=== PATIENT | male | born 1945 | race Caucasian/White ===

== ENCOUNTER 2022-02-01 17:29 | Emergency (ER) | payer MEDICARE, SELFPAY ==
--- NOTE | 2022-02-01 17:33 | CTR_ITS ---
PROCEDURE INFORMATION: Exam: CT Head Without Contrast Exam date and time: 02/01/2022 5:57 PM Age: 76 years old Clinical indication: Altered mental status/memory loss; Additional info: AMS TECHNIQUE: Imaging protocol: Computed tomography of the head without contrast. Radiation optimization: All CT scans at this facility use at least one of these dose optimization techniques: automated exposure control; mA and/or kV adjustment per patient size (includes targeted exams where dose is matched to clinical indication); or iterative reconstruction. COMPARISON: CT head wo con* [id number] 06/23/2018 3:12 PM RADIATION DOSE METRICS: Total DLP (mGy-cm): 1079.28 FINDINGS: Brain: No hemorrhage. No edema. Moderate diffuse cerebral atrophy and sequela of chronic small vessel ischemic disease. 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 No mass effect. Cerebral ventricles: No ventriculomegaly. Paranasal sinuses: Visualized sinuses are unremarkable. No fluid levels. Mastoid air cells: Visualized mastoid air cells are well aerated. Bones/joints: Unremarkable. No acute fracture. Soft tissues: Unremarkable. CT/CT head wo con* [id number] IMPRESSION: 1. No acute intracranial abnormality. 2. Moderate diffuse cerebral atrophy and sequela of chronic small vessel ischemic disease. 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
--- NOTE | 2022-02-01 17:33 | ECG_ITS ---
[facility] Test Date: 2022-02-01 Pat Name: Mekhi Chao Department: Room: Gender: Male Title Search Manager: : 1945 Requested By: Rock Payne Order Number: [id number] Diamante MD: Erik Mckeon M.D. Measurements Intervals [place] Rate: 73 P: ME: QRS: 72 QRSD: 96 T: 76 QT: 423 QTc: 468 Interpretive Statements ATRIAL FLUTTER INDETERMINATE AXIS MODERATE ST DEPRESSION [0.05+ mV ST DEPRESSION] Compared to ECG 10/19/2018 21:42:06 Indeterminate axis now present ST (T wave) deviation now present Sinus rhythm no longer present First degree AV block no longer present Electronically Signed On 02-01-2022 19:41:12 CDT by Erik Mckeon M.D. [id number]
--- NOTE | 2022-02-01 17:34 | W.ED.AMS ---
Documented by User: Rock Payne MD 02/01/22 17:52 HPI - Altered Mental Status General: Chief Complaint: Altered Mental Status Stated Complaint: POST AMS Time Seen by Provider: 02/01/22 17:31 History of Present Illness: 76-year-old presents with transient confusion. Per family around noon became confused and disoriented. This lasted for several hours until EMS was called. Upon arrival of EMS he returned to normal. He denies any pain. Specifically denies headache. Denies any focal numbness weakness or tingling that is new. Does have mild left-sided facial droop from previous stroke that is unchanged today. Denies any speech difficulty. Denies any hearing change vision change or vertigo. Review of Systems Narrative: - CONSTITUTIONAL: Denies weight loss, fever and chills. - HEENT: Denies changes in vision and hearing. - RESPIRATORY: Denies SOB and cough. - CV: Denies palpitations and CP. - GI: Denies abdominal pain, nausea, vomiting and diarrhea. - : Denies dysuria and urinary frequency. - MSK: Denies myalgia and joint pain. - SKIN: Denies rash and pruritus. - NEUROLOGICAL: Denies headache, weakness, numbness and syncope. - PSYCHIATRIC: Denies suicidal ideation Physical Exam Narrative: - GENERAL: Alert and oriented x 3. No acute distress. Well-nourished. - EYES: EOMI. Anicteric. - HENT: Atraumatic, no C-spine tenderness. Moist mucous membranes. No scleral icterus. No cervical lymphadenopathy. - LUNGS: Clear to auscultation bilaterally. No accessory muscle use. Equal lung sounds bilaterally. No respiratory distress. - CARDIOVASCULAR: Regular rate and rhythm. No murmur. No JVD. - ABDOMEN: Soft, non-tender and non-distended. Negative CVA tenderness bilaterally, no rebound or guarding, negative Rivera sign. No palpable masses. - EXTREMITIES: No edema. Non-tender. - SKIN: No rashes or lesions. Warm. - NEUROLOGIC: No meningismus, mild left facial droop which is chronic, otherwise no focal neurological deficits. - PSYCHIATRIC: Cooperative. Appropriate mood and affect. Course Vital Signs: Vital signs: Vital Signs Temperature 97.6 F 02/01/22 18:37 Pulse Rate 81 02/01/22 18:37 Respiratory Rate 18 02/01/22 18:37 Blood Pressure 153/101 02/01/22 18:37 Pulse Oximetry 97 02/01/22 18:37 MDM - Altered Mental Status Medical Decision Making 76-year-old presents with transient confusion. Blood sugar at the scene was 240. Nonfocal neurologic exam except for old chronic left facial droop from previous stroke. Lab work and imaging currently pending. Patient signed out to Dr. Mendoza. Lab Data : 02/01/22 18:25 02/01/22 19:[address] 02/01/22 17:33 IMPRESSION: 1. No acute intracranial abnormality. 2. Moderate diffuse cerebral atrophy and sequela of chronic small vessel ischemic disease. 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 Laboratory Results WBC 7.4 10^3/uL (4.0-10.0) 02/01/22 18:25 RBC 4.36 10^6/uL (4.1-5.3) 02/01/22 18:25 Hgb 12.4 g/dL (11.7-16.6) 02/01/22 18:25 Hct 36.5 % (42.0-52.0) L 02/01/22 18:25 MCV 83.7 fl (80-94) 02/01/22 18:25 MCH 28.4 pg (28.0-34.0) 02/01/22 18:25 MCHC 34.0 g/dL (30.0-36.0) 02/01/22 18:25 RDW 13.4 % (12.1-15.1) 02/01/22 18:25 Plt Count 262 10^3/cmm (130-400) 02/01/22 18:25 MPV 9.5 fL (7.4-10.4) 02/01/22 18:25 Neut % (Auto) 68.6 % 02/01/22 18:25 Lymph % (Auto) 20.7 % 02/01/22 18:25 [place] % (Auto) 8.7 % 02/01/22 18:25 Eos % (Auto) 1.2 % 02/01/22 18:25 Baso % (Auto) 0.4 % 02/01/22 18:25 Neut # (Auto) 5.05 10^3/uL (1.8-7.7) 02/01/22 18:25 Lymph # (Auto) 1.5 10^3/uL (0.8-4.8) 02/01/22 18:25 [place] # (Auto) 0.6 10^3/uL (0.2-0.9) 02/01/22 18:25 Eos # (Auto) 0.1 10^3/uL (0.0-0.8) 02/01/22 18:25 Baso # (Auto) 0.0 10^3/uL (0.0-0.1) 02/01/22 18:25 Nucleated RBC % (auto) 0 % 02/01/22 18:25 Nucleated RBCs # 0.0 /100WBC 02/01/22 18:25 Sodium 128 mmol/L (136-145) L 02/01/22 19:47 Potassium 4.0 mmol/L (3.5-5.1) 02/01/22 19:47 Chloride 91 mmol/L (98-107) L 02/01/22 19:47 Carbon Dioxide 27 mmol/L (22-29) 02/01/22 19:47 Anion Gap 14.0 (5-19) 02/01/22 19:47 BUN 8 mg/dL (8-23) 02/01/22 19:47 Creatinine 0.7 mg/dL (0.7-1.2) 02/01/22 19:47 GFR Calculation Not Reportable 02/01/22 19:47 Glucose 171 mg/dL (65-115) H 02/01/22 19:47 Calculated Osmolality 268 mOsm/kg (285-295) L 02/01/22 19:47 Calcium 8.8 mg/dL (8.5-10.5) 02/01/22 19:47 Total Bilirubin 0.3 mg/dL (0.15-1.2) 02/01/22 18:25 AST 15 U/L (0-40) 02/01/22 18:25 ALT 12 U/L (0-41) 02/01/22 18:25 Alkaline Phosphatase 98 IU/L (40-130) 02/01/22 18:25 Total Protein 6.7 g/dL (6.6-8.7) 02/01/22 18:25 Albumin 3.9 g/dL (3.5-5.2) 02/01/22 18:25 Globulin 2.8 g/dL (1.3-4.6) 02/01/22 18:25 Urine Color Yellow (Yellow) 02/01/22 18:34 Urine Appearance Clear (CLEAR) 02/01/22 18:34 Urine pH 7 (5-7) 02/01/22 18:34 Ur Specific [place] 1.010 (1.005-1.030) 02/01/22 18:34 Urine Protein Trace (Negative) 02/01/22 18:34 Urine Glucose (UA) 1+ (Normal) H 02/01/22 18:34 Urine Ketones Negative (Negative) 02/01/22 18:34 Urine Blood Neg (Negative) 02/01/22 18:34 Urine Nitrate Negative (Negative) 02/01/22 18:34 Urine Bilirubin Neg (Negative) 02/01/22 18:34 Urine Urobilinogen Norm mg/dL (Negative) 02/01/22 18:34 Ur Leukocyte Esterase Negative (Negative) 02/01/22 18:34 Urine RBC None /hpf (0-2) 02/01/22 18:34 Urine WBC None /hpf (0-5) 02/01/22 18:34 Ur Squamous Epith Cells 0-4 /hpf (0-5) H 02/01/22 18:34 Amorphous Sediment Not Reportable 02/01/22 18:34 Urine Bacteria None /hpf (NONE) 02/01/22 18:34 Urine Sperm 1+ /hpf 02/01/22 18:34 Discharge Plan Discharge Patient Disposition: Home Clinical Impression: Altered mental status, Hyponatremia Condition: Stable Discharge Orders: Discharge ED (Routine); Ordered 02/01/22 Ordered By: Negrito Mendoza Referrals: Rock Pappas [Referring] - 1-3 days Discharge Diet: Advance as tolerated Discharge Activity: Resume usual activity Patient Instructions: Hyponatremia (ED) Coding Level of Care Code ED Insulation Estimator for Chg Fwd Documented by User: Negrito Mendoza MD 02/01/22 20:39 HPI - Altered Mental Status General: Chief Complaint: Altered Mental Status Stated Complaint: POST AMS Time Seen by Provider: 02/01/22 17:31 Course Vital Signs: Vital signs: Vital Signs Temperature 97.6 F 02/01/22 18:37 Pulse Rate 81 02/01/22 18:37 Respiratory Rate 18 02/01/22 18:37 Blood Pressure 153/101 02/01/22 18:37 Pulse Oximetry 97 02/01/22 18:37 MDM - Altered Mental Status Medical Decision Making 76-year-old presents with transient confusion. Blood sugar at the scene was 240. Nonfocal neurologic exam except for old chronic left facial droop from previous stroke. Lab work and imaging currently pending. Patient signed out to Dr. Mendoza. Patient presents here with a period of confusion is since resolved he has been well-appearing here head CT is normal he does have hyponatremia I did offer him admission for observation he is adamant that he wants to go home he is at his baseline here answering all my questions appropriately does have medical decision making capacity he is to follow-up with his PCP and return if worsening. Lab Data : 02/01/22 18:25 02/01/22 19:[address] 02/01/22 17:33 IMPRESSION: 1. No acute intracranial abnormality. 2. Moderate diffuse cerebral atrophy and sequela of chronic small vessel ischemic disease. 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 Laboratory Results WBC 7.4 10^3/uL (4.0-10.0) 02/01/22 18:25 RBC 4.36 10^6/uL (4.1-5.3) 02/01/22 18:25 Hgb 12.4 g/dL (11.7-16.6) 02/01/22 18:25 Hct 36.5 % (42.0-52.0) L 02/01/22 18:25 MCV 83.7 fl (80-94) 02/01/22 18:25 MCH 28.4 pg (28.0-34.0) 02/01/22 18:25 MCHC 34.0 g/dL (30.0-36.0) 02/01/22 18:25 RDW 13.4 % (12.1-15.1) 02/01/22 18:25 Plt Count 262 10^3/cmm (130-400) 02/01/22 18:25 MPV 9.5 fL (7.4-10.4) 02/01/22 18:25 Neut % (Auto) 68.6 % 02/01/22 18:25 Lymph % (Auto) 20.7 % 02/01/22 18:25 [place] % (Auto) 8.7 % 02/01/22 18:25 Eos % (Auto) 1.2 % 02/01/22 18:25 Baso % (Auto) 0.4 % 02/01/22 18:25 Neut # (Auto) 5.05 10^3/uL (1.8-7.7) 02/01/22 18:25 Lymph # (Auto) 1.5 10^3/uL (0.8-4.8) 02/01/22 18:25 [place] # (Auto) 0.6 10^3/uL (0.2-0.9) 02/01/22 18:25 Eos # (Auto) 0.1 10^3/uL (0.0-0.8) 02/01/22 18:25 Baso # (Auto) 0.0 10^3/uL (0.0-0.1) 02/01/22 18:25 Nucleated RBC % (auto) 0 % 02/01/22 18: Nucleated RBCs # 0.0 /100WBC 02/01/22 18:25 Sodium 128 mmol/L (136-145) L 02/01/22 19:47 Potassium 4.0 mmol/L (3.5-5.1) 02/01/22 19:47 Chloride 91 mmol/L (98-107) L 02/01/22 19:47 Carbon Dioxide 27 mmol/L (22-29) 02/01/22 19:47 Anion Gap 14.0 (5-19) 02/01/22 19:47 BUN 8 mg/dL (8-23) 02/01/22 19:47 Creatinine 0.7 mg/dL (0.7-1.2) 02/01/22 19:47 GFR Calculation Not Reportable 02/01/22 19:47 Glucose 171 mg/dL (65-115) H 02/01/22 19:47 Calculated Osmolality 268 mOsm/kg (285-295) L 02/01/22 19:47 Calcium 8.8 mg/dL (8.5-10.5) 02/01/22 19:47 Total Bilirubin 0.3 mg/dL (0.15-1.2) 02/01/22 18:25 AST 15 U/L (0-40) 02/01/22 18:25 ALT 12 U/L (0-41) 02/01/22 18:25 Alkaline Phosphatase 98 IU/L (40-130) 02/01/22 18:25 Total Protein 6.7 g/dL (6.6-8.7) 02/01/22 18:25 Albumin 3.9 g/dL (3.5-5.2) 02/01/22 18:25 Globulin 2.8 g/dL (1.3-4.6) 02/01/22 18:25 Urine Color Yellow (Yellow) 02/01/22 18:34 Urine Appearance Clear (CLEAR) 02/01/22 18:34 Urine pH 7 (5-7) 02/01/22 18:34 Ur Specific [place] 1.010 (1.005-1.030) 02/01/22 18:34 Urine Protein Trace (Negative) 02/01/22 18:34 Urine Glucose (UA) 1+ (Normal) H 02/01/22 18:34 Urine Ketones Negative (Negative) 02/01/22 18:34 Urine Blood Neg (Negative) 02/01/22 18:34 Urine Nitrate Negative (Negative) 02/01/22 18:34 Urine Bilirubin Neg (Negative) 02/01/22 18:34 Urine Urobilinogen Norm mg/dL (Negative) 02/01/22 18:34 Ur Leukocyte Esterase Negative (Negative) 02/01/22 18:34 Urine RBC None /hpf (0-2) 02/01/22 18:34 Urine WBC None /hpf (0-5) 02/01/22 18:34 Ur Squamous Epith Cells 0-4 /hpf (0-5) H 02/01/22 18:34 Amorphous Sediment Not Reportable 02/01/22 18:34 Urine Bacteria None /hpf (NONE) 02/01/22 18:34 Urine Sperm 1+ /hpf 02/01/22 18:34 EKG Data EKG 1: I personally reviewed and interpreted this EKG as follows: EKG interpretation date: 02/01/22 EKG interpretation time: 18:34 Interpretation: atrial flutter hr [address] or t wave abnormalities qrs 96 qtc 449 Discharge Plan Discharge Patient Disposition: Home Clinical Impression: Altered mental status, Hyponatremia Condition: Stable Discharge Orders: Discharge ED (Routine); Ordered 02/01/22 Ordered By: Negrito Mendoza Referrals: Rock Pappas [Referring] - 1-3 days Discharge Diet: Advance as tolerated Discharge Activity: Resume usual activity Patient Instructions: Hyponatremia (ED) Coding Level of Care Code ED Insulation Estimator for Lenka Leung
[2022-02-01 17:44] VITALS: BP 181/107; PULSE 85; RESP 15; O2SAT 98
[2022-02-01 18:31] LABS: Basophils % 0.4 %; Eosinophils # 0.1 10^3/uL (0.0-0.8); Eosinophils % 1.2 %; Hematocrit 36.5 % (42.0-52.0); Hemoglobin 12.4 g/dL (11.7-16.6); Lymphocytes # 1.5 10^3/uL (0.8-4.8); Lymphocytes % 20.7 %; Mean Corpuscular Hemoglobin 28.4 pg (28.0-34.0); Mean Corpuscular Volume 83.7 fl (80-94); Mean Platelet Volume 9.5 fL (7.4-10.4); Monocytes # 0.6 10^3/uL (0.2-0.9); Monocytes % 8.7 %; Neutrophils # 5.05 10^3/uL (1.8-7.7); Neutrophils % 68.6 %; Nucleated Red Blood Cells % 0 %; Platelet Count 262 10^3/cmm (130-400); Red Blood Count 4.36 10^6/uL (4.1-5.3); Red Cell Distribution Width 13.4 % (12.1-15.1); White Blood Count 7.4 10^3/uL (4.0-10.0)
[2022-02-01 18:37] VITALS: BP 153/101; PULSE 81; RESP 18; TEMP 36.4; O2SAT 97
[2022-02-01 18:55] LABS: Alanine Aminotransferase 12 U/L (0-41); Albumin Level 3.9 g/dL (3.5-5.2); Alkaline Phosphatase 98 IU/L (40-130); Anion Gap 16.2 (5-19); Aspartate Amino Transferase 15 U/L (0-40); Blood Urea Nitrogen 8 mg/dL (8-23); Calcium 8.7 mg/dL (8.5-10.5); Carbon Dioxide 24 mmol/L (22-29); Chloride 90 mmol/L (98-107); Globulin 2.8 g/dL (1.3-4.6); Glucose 216 mg/dL (65-115); Osmolality Calculated 267 mOsm/kg (285-295); Potassium 4.2 mmol/L (3.5-5.1); Sodium 126 mmol/L (136-145); Total Bilirubin 0.3 mg/dL (0.15-1.2); Total Protein 6.7 g/dL (6.6-8.7)
[2022-02-01] MEDS: sodium chloride 0.9% 1,000 ML 999 ML IV (19:00)
[2022-02-01 19:22] LABS: Add Urine Culture? No; Bilirubin Urine Neg (Negative); Blood Urine Neg (Negative); Glucose Urine UA 1+ (Normal); Ketones Urine Negative (Negative); Leukocyte Esterase Urine Negative (Negative); Nitrate Urine Negative (Negative); Protein Urine Trace (Negative); Sperm Urine 1+ /hpf; Squamous Epithelial Cell Urine 0-4 /hpf (0-5); Urine Appearance Clear (CLEAR); Urine Color Yellow (Yellow); Urobilinogen Urine Norm (Negative); pH Urine 7 (5-7)
[2022-02-01 20:28] LABS: Blood Urea Nitrogen 8 mg/dL (8-23); Calcium 8.8 mg/dL (8.5-10.5); Carbon Dioxide 27 mmol/L (22-29); Chloride 91 mmol/L (98-107); Glucose 171 mg/dL (65-115); Osmolality Calculated 268 mOsm/kg (285-295); Sodium 128 mmol/L (136-145)
[2022-02-01 20:55] VITALS: BP 182/99; PULSE 81; RESP 18; O2SAT 96
== END 2022-02-01 20:56 | disposition home or self-care (01) ==
PROVIDERS: Emergency Medicine; Emergency Provider Emergency Medicine
DX: E87.1 Hypo-osmolality and hyponatremia (principal); R41.82 Altered mental status, unspecified
CPT/HCPCS: 70450; 80048; 80053; 81001; 85025; 93005; 96360; 99284; J7030

== ENCOUNTER → 2023-06-15 10:41 | Outpatient (BNVA) | payer MEDICARE, SELFPAY | PROVIDERS: Visit Provider Student in an Organized Health Care Education/Training Program | DX: M17.12 Unilateral primary osteoarthritis, left knee | CPT/HCPCS: 73560; 73562; 73565; 99203 ==

== ENCOUNTER 2023-06-20 15:59 | Outpatient (CLI) | payer MEDICARE, SELFPAY ==
--- NOTE | 2023-06-20 17:00 | CTR_ITS ---
PROCEDURE INFORMATION: Exam: CT Left Lower Extremity Without Contrast, Knee Exam date and time: 06/20/2023 4:30 PM Age: 77 years old Clinical indication: Pain and injury or trauma; Fall; Blunt trauma; Knee; Left; Injury date: 05/24/23; Additional info: R/O fracture TECHNIQUE: Imaging protocol: CT of the left lower extremity without contrast was performed. Exam focused on the knee. Radiation optimization: All CT scans at this facility use at least one of these dose optimization techniques: automated exposure control; mA and/or kV adjustment per patient size (includes targeted exams where dose is matched to clinical indication); or iterative reconstruction. REPORTING DATA: Count of CT and Cardiac NM exams in prior 12 months: This patient has received 0 known CTs and 0 known cardiac nuclear medicine studies in the 12 months prior to the current study. COMPARISON: CR XR knee LT 3V* [id number] 06/15/2023 11:00 AM RADIATION DOSE METRICS: Total DLP (mGy-cm): 543.53 FINDINGS: Bones/joints: Severe narrowing of the lateral joint compartment with subchondral sclerosis and osteophyte formation associated. This is consistent with degenerative osteoarthritis. Similar, but less severe changes are seen in the medial compartment. There is moderate degenerative change of the anterior compartment. No acute fracture or other acute osseous abnormality. Small suprapatellar joint effusion noted. Soft tissues: Subcutaneous edema noted. No fluid collection. The musculature is unremarkable. Vasculature: There are atherosclerotic calcifications demonstrated. CT/CT knee LT wo con* [id number] IMPRESSION: 1. No acute fracture demonstrated. 2. Tricompartmental degenerative osteoarthritis noted. 3. Subcutaneous edema noted. No fluid collection.
== END 2023-06-20 16:00 | disposition home or self-care (01) ==
LOC: RAD 16:00
PROVIDERS: Visit Provider Student in an Organized Health Care Education/Training Program
DX: S82.141A Displaced bicondylar fracture of right tibia, initial encounter for closed fracture (principal); W19.XXXA Unspecified fall, initial encounter; Y93.9 Activity, unspecified; Y92.9 Unspecified place or not applicable; Y99.9 Unspecified external cause status; M17.12 Unilateral primary osteoarthritis, left knee; M25.762 Osteophyte, left knee; M25.462 Effusion, left knee
CPT/HCPCS: 73700

== ENCOUNTER → 2023-08-28 13:44 | Outpatient (BNVA) | payer MEDICARE, SELFPAY | PROVIDERS: PCP Family Medicine; Visit Provider Physician Assistant | DX: M17.12 Unilateral primary osteoarthritis, left knee (principal) | CPT/HCPCS: 20610; 99213; J1040 ==